=== PATIENT | male | born 1950 | race Caucasian/White ===

== ENCOUNTER 2020-02-12 14:31 | Emergency (ER) | payer BC, OTHER ==
[~2020-02-12] VITALS: Ht 175.3 cm; Wt 94.3 kg
--- NOTE | 2020-02-12 15:05 | ED General ---
General Chief Complaint: Glucose Problems Stated Complaint: HIGH BS - 405 Nursing Triage Note: pt amb to rm 6 with complaint of high blood sugar. states family made him take blood glucose at home on someone elses glucometer. blood sugar was in the 400s. states has been having increased thirst and urination at night. denies history of diabetes. Nursing Sepsis Screen: No Definite Risk Source of Information: Patient Exam Limitations: No Limitations History of Present Illness Date Seen by Provider: Feb 12, 2020 Time Seen by Provider: 15:04 Initial Comments This is a healthy appearing 69 yo male who presented to the ED with complaints of elevated blood sugar of 400's at home. States his granddaughter was checking her blood sugar when she decided to check his out of curiosity and noted his BG was 405. Reports over the past two weeks he has been experiencing increased thirst and urination. The last time he saw his PCP was 2-3 years ago. Reports he was diagnosed with "pre-diabetes" and placed on medication briefly. However, he no longer takes any medications. Denies fever, chills, nausea/vomiting, diarrhea, abdominal pain, dysuria. Allergies and Home Medications Allergies Coded Allergies: Oxaprozin (Unverified Allergy, SWELLING, 11/21/11) Home Medications Metformin HCl 500 Mg Tablet, 500 MG PO BID Prescribed by: JUDE ALMANZA on 02/12/20 1816 Patient Home Medication List Home Medication List Reviewed: Yes Review of Systems Review of Systems Constitutional: see HPI EENTM: no symptoms reported Respiratory: no symptoms reported Cardiovascular: no symptoms reported Gastrointestinal: no symptoms reported Genitourinary: see HPI Musculoskeletal: no symptoms reported Skin: no symptoms reported Psychiatric/Neurological: No Symptoms Reported Hematologic/Lymphatic: No Symptoms Reported Immunological/Allergic: no symptoms reported Past [id number]-[id number]-Ooypqf Hx Patient Social History Alcohol Use: Rarely Uses Recreational Drug Use: No Smoking Status: Never a Smoker Recent Foreign Travel: No Contact w/Someone Who Travel: No Recent Infectious Disease Expo: No Recent Hopitalizations: No Immunizations Up To Date Tetanus Booster (TDap): Unknown PED Vaccines UTD: Yes Seasonal Allergies Seasonal Allergies: No Past Medical History Surgeries: Yes Tonsillectomy Respiratory: No Cardiac: No Neurological: No Genitourinary: No Gastrointestinal: No Musculoskeletal: No Endocrine: No HEENT: No Cancer: No Psychosocial: No Integumentary: No Blood Disorders: No Physical Exam Vital Signs Vital Signs - First Documented 02/12/20 14:40 Temp 36.2 Pulse 80 Resp 20 B/P (MAP) 134/78 (96) Pulse Ox 96 O2 Delivery Room Air Capillary Refill : Less Than 3 Seconds Height, Weight, BMI Height: '" Weight: lbs. oz. kg; 30.00 BMI Method: General Appearance: No Apparent Distress, WD/WN Eyes: Bilateral Eye Normal Inspection, Bilateral Eye PERRL, Bilateral Eye EOMI HEENT: PERRL/EOMI, Normal ENT Inspection, Pharynx Normal Neck: Full Range of Motion, Normal Inspection, Supple Respiratory: Chest Non Tender, Lungs Clear, Normal Breath Sounds Cardiovascular: Regular Rate, Rhythm, No Murmur, Normal Peripheral Pulses Gastrointestinal: Normal Bowel Sounds, Non Tender, Soft Extremity: Normal Capillary Refill, Normal Inspection, Normal Range of Motion, No Pedal Edema Neurologic/Psychiatric: Alert, Oriented x3, No Motor/Sensory Deficits, Normal Mood/Affect Skin: Normal Color, Warm/Dry Progress/Results/Core Measures Suspected Sepsis Recent Fever Within 48 Hours: No Infection Criteria Present: None New/Unexplained Altered Menta: No Sepsis Screen: No Definite Risk SIRS Temperature: Pulse: 80 Respiratory Rate: 20 Laboratory Tests 02/12/20 15:02: White Blood Count 3.7L Blood Pressure 134 /78 Mean: 96 Laboratory Tests 02/12/20 15:02: Creatinine 1.27, Platelet Count 142, Total Bilirubin 0.8 Results/Orders Lab Results Laboratory Tests Test 02/12/20 10:07 02/12/20 14:46 02/12/20 15:02 02/12/20 17:41 Range/Units Urine Color YELLOW Urine Clarity CLEAR Urine pH 5.5 5-9 Urine Specific [place] <=1.005 1.016-1.022 Urine Protein NEGATIVE NEGATIVE Urine Glucose (UA) 3+ H NEGATIVE Urine Ketones NEGATIVE NEGATIVE Urine Nitrite NEGATIVE NEGATIVE Urine Bilirubin NEGATIVE NEGATIVE Urine Urobilinogen 0.2 < = 1.0 MG/DL Urine Leukocyte Esterase NEGATIVE NEGATIVE Urine RBC (Auto) NEGATIVE NEGATIVE Urine RBC NONE /HPF Urine WBC NONE /HPF Urine Crystals NONE /LPF Urine Bacteria TRACE /HPF Urine Casts NONE /LPF Urine Mucus NEGATIVE /LPF Urine Culture Indicated NO Glucometer 476 *H 346 H 70-110 MG/DL White Blood Count 3.7 L 4.3-11.0 10^3/uL Red Blood Count 5.07 4.30-5.52 10^6/uL Hemoglobin 14.5 13.3-17.7 g/dL Hematocrit 43 40-54 % Mean Corpuscular Volume 85 80-99 fL Mean Corpuscular Hemoglobin 29 25-34 pg Mean Corpuscular Hemoglobin Concent 34 32-36 g/dL Red Cell Distribution Width 12.4 10.0-14.5 % Platelet Count 142 130-400 10^3/uL Mean Platelet Volume 11.6 9.0-12.2 fL Immature Granulocyte % (Auto) 0 % Neutrophils (%) (Auto) 56 42-75 % Lymphocytes (%) (Auto) 37 12-44 % Monocytes (%) (Auto) 5 0-12 % Eosinophils (%) (Auto) 1 0-10 % Basophils (%) (Auto) 0 0-10 % Neutrophils # (Auto) 2.1 1.8-7.8 10^3/uL Lymphocytes # (Auto) 1.4 1.0-4.0 10^3/uL Monocytes # (Auto) 0.2 0.0-1.0 10^3/uL Eosinophils # (Auto) 0.0 0.0-0.3 10^3/uL Basophils # (Auto) 0.0 0.0-0.1 10^3/uL Immature Granulocyte # (Auto) 0.0 0.0-0.1 10^3/uL Sodium Level 132 L 135-145 MMOL/L Potassium Level 4.2 3.6-5.0 MMOL/L Chloride Level 98 98-107 MMOL/L Carbon Dioxide Level 24 21-32 MMOL/L Anion Gap 10 5-14 MMOL/L Blood Urea Nitrogen 18 7-18 MG/DL Creatinine 1.27 0.60-1.30 MG/DL Estimat Glomerular Filtration Rate 56 BUN/Creatinine Ratio 14 Glucose Level 625 *H 70-105 MG/DL Calcium Level 8.8 8.5-10.1 MG/DL Corrected Calcium 9.0 8.5-10.1 MG/DL Total Bilirubin 0.8 0.1-1.0 MG/DL Aspartate Amino Transf (AST/SGOT) 13 5-34 U/L Alanine Aminotransferase (ALT/SGPT) 20 0-55 U/L Alkaline Phosphatase 75 40-136 U/L Total Protein 6.2 L 6.4-8.2 GM/DL Albumin 3.7 3.2-4.5 GM/DL Test 02/12/20 18:19 Range/Units Glucometer 300 H 70-110 MG/DL My Orders Orders - JUDE ALMANZA BUSINESS INTELLIGENCE CONSULTANT Cbc With Automated Diff (02/12/20 14:47) Comprehensive Metabolic Panel (02/12/20 14:47) Ua Culture If Indicated (02/12/20 14:47) Ed Iv/Invasive Line Start (02/12/20 14:47) Accucheck Stat ONCE (02/12/20 15:05) Ns Iv 1000 Ml (Sodium Chloride 0.9%) (02/12/20 15:15) Insulin (Regular) Human (Novolin R (Per (02/12/20 16:00) Hemoglobin A1c (02/12/20 18:38) Medications Given in ED Current Medications Medications Dose Ordered Sig/Randee Route Start Time Stop Time Status Last Admin Dose Admin Insulin Human Regular 5 unit ONCE ONCE IV 02/12/20 16:00 02/12/20 16:01 DC 02/12/20 16:43 5 UNIT Sodium Chloride 1,000 ml @ 999 mls/hr Q1H ONCE IV 02/12/20 15:15 02/12/20 16:15 DC 02/12/20 15:14 999 MLS/HR Vital Signs/I&O 02/12/20 02/12/20 14:40 18:51 Temp 36.2 Pulse 80 74 Resp 20 16 B/P (MAP) 134/78 (96) 133/87 Pulse Ox 96 98 O2 Delivery Room Air Room Air Capillary Refill : Less Than 3 Seconds Blood Pressure Mean: 96 Progress Note : Progress Note POC blood glucose noted at 476 upon arrival. Serum glucose called to RN of 625. Received Regular insulin 5 units IVP and normal saline bolus. POC blood glucose trended down to 346. Discussed medication management upon discharge and he is agreeable with trying Metformin again. Upon discharge blood glucose 300, reviewed dietary modifications, adverse effects of Metformin, and blood glucose monitoring. Handouts from the [employer] provided on diet choices, signs and symptoms of hypoglycemia and hyperglycemia. Reviewed discharge POC and he is agreeable with plan. Departure Impression Primary Impression: Hyperglycemia Disposition: 01 HOME, SELF-CARE Condition: Improved Departure-Patient Inst. Decision time for Depature: 18:18 Referrals: NO,LOCAL PHYSICIAN (PCP/Family) Primary Care Physician Patient Instructions: Hyperglycemia, Adult (DC) Add. Discharge Instructions: Plan: 1. Discharge home. 2. Drink plenty of water, avoid sugary drinks such as soda and juices. 3. Follow up with Dr. Lara on Friday. Call [phone] for appointment. 4. Establish with Primary Care Provider of choice. ED note forwarded to Dr. Beatty's office per request. 5. Check your blood sugar before meals every morning and night. Document janet dings and take with you to your doctor appointment. 6. Follow diet modifications as discussed and review handouts. 7. Take Metformin twice a day as directed. 8. Return to the ER if your blood sugar is consistently reading above 450. 9. Return for any new, worsening, or concerning symptoms. All discharge instructions reviewed with patient and/or family. Voiced understanding. Scripts Metformin HCl (Metformin HCl) 500 Mg Tablet 500 MG PO BID for 30 Days, #60 TAB 0 Refills Prov: JUDE ALMANZA BUSINESS INTELLIGENCE CONSULTANT 02/12/20 JUDE ALMANZA BUSINESS INTELLIGENCE CONSULTANT Feb 12, 2020 15:05
[2020-02-12 15:12] LABS: BASOPHILS % (AUTO) 0 % (0-10); EOSINOPHILS % (AUTO) 1 % (0-10); HEMATOCRIT 43 % (40-54); HEMOGLOBIN 14.5 g/dL (13.3-17.7); LYMPHOCYTES # (AUTO) 1.4 10^3/uL (1.0-4.0); LYMPHOCYTES % (AUTO) 37 % (12-44); MEAN CORPUSCULAR HEMOGLOBIN 29 pg (25-34); MEAN CORPUSCULAR HGB CONC 34 g/dL (32-36); MEAN CORPUSCULAR VOLUME 85 fL (80-99); MEAN PLATELET VOLUME 11.6 fL (9.0-12.2); MONOCYTES # (AUTO) 0.2 10^3/uL (0.0-1.0); MONOCYTES % (AUTO) 5 % (0-12); NEUTROPHILS # (AUTO) 2.1 10^3/uL (1.8-7.8); NEUTROPHILS % (AUTO) 56 % (42-75); PLATELET COUNT 142 10^3/uL (130-400); WHITE BLOOD COUNT 3.7 10^3/uL (4.3-11.0)
[2020-02-12 15:15] LABS: BILIRUBIN,URINE NEGATIVE (NEGATIVE); CLARITY,URINE CLEAR; COLOR,URINE YELLOW; GLUCOSE, URINE (UA) 3+ (NEGATIVE); KETONES,URINE NEGATIVE (NEGATIVE); LEUKOCYTE ESTERASE ,URINE NEGATIVE (NEGATIVE); NITRITE,URINE NEGATIVE (NEGATIVE); PH,URINE 5.5 (5-9); PROTEIN,URINE NEGATIVE (NEGATIVE)
[2020-02-12] MEDS ORDERED: NS IV 1000 ML 1,000 ML IV ONE (15:15)
[2020-02-12 15:25] LABS: ALBUMIN 3.7 GM/DL (3.2-4.5)
[2020-02-12 15:26] LABS: POTASSIUM 4.2 MMOL/L (3.6-5.0)
[2020-02-12 15:27] LABS: CALCIUM 8.8 MG/DL (8.5-10.1)
[2020-02-12 15:28] LABS: TOTAL PROTEIN 6.2 GM/DL (6.4-8.2)
[2020-02-12 15:30] LABS: BILIRUBIN,TOTAL 0.8 MG/DL (0.1-1.0)
[2020-02-12 15:32] LABS: CREATININE SERUM 1.27 MG/DL (0.60-1.30)
[2020-02-12] MEDS ORDERED: inSUlin (REGULAR) HUMAN 1 UNIT/0.01 ML (CHARGE PER UNIT) IV ONE (16:00)
[2020-02-12 16:01] LABS: BACTERIA,URINE TRACE /HPF
[2020-02-12] MEDS ORDERED: METF-397 PO (18:19)
[2020-02-12 18:51] VITALS: BP 133/87
== END 2020-02-12 18:51 | disposition home or self-care (01) ==
LOC: EDUNIT# 14:31 → ER 14:32
DX: R73.9 Hyperglycemia, unspecified (principal); Z88.8 Allergy status to other drugs, medicaments and biological substances
CPT/HCPCS: 36415; 80053; 81000; 82962; 83036; 85025